=== PATIENT | female | born 1955 | race Caucasian/White ===

== ENCOUNTER → 2016-03-17 | Outpatient (CLI) | payer BC ==
[~2016-03-17] MED LIST: ATOR-54 PO; BUPR150T7 PO; CLOR3.755 PO; CMBIN INH; CROMOLYN 4% OP; HYDR1TAB2 PO; OMEP20CA9 PO; OXAP600T PO; SERT1TAB68 PO; SUMA6KIT2; ZOLP10TA PO
--- NOTE | 2016-03-17 16:32 | MAMMOGRAPHY REPORT ---
BILATERAL DIGITAL SCREENING MAMMOGRAM TOMOSYNTHESIS WITH CAD: 03/17/2016 CLINICAL HISTORY: Routine screening. Patient has no complaints. TECHNIQUE: Breast tomosynthesis in addition to standard 2D mammography was performed. Current study was also evaluated with a Computer Aided Detection (CAD) system. COMPARISON: Comparison is made to exams dated: 03/14/2015 mammogram, 03/13/2014 mammogram, 03/09/20 13 mammogram, 07/22/2011 mammogram, 07/04/2010 mammogram, and 05/01/2009 mammogram - [facility]. BREAST COMPOSITION: The tissue of both breasts is heterogeneously dense, which may obscure small ma sses. FINDINGS: The parenchymal pattern is similar to prior mammograms. There are scattered stable benign -appearing coarse calcifications. No suspicious mass, architectural distortion or cluster of [place] microcalcifications is seen. IMPRESSION: ACR BI-RADS CATEGORY 1: NEGATIVE There is no mammographic evidence of malignancy. A 1 year screening mammogram is recommended. The p atient will receive written notification of the results. Approximately 10% of breast cancers are not detected with mammography. A negative mammographic repor t should not delay biopsy if a clinically suggestive mass is present. Izabel Tobias M.D. ay/:03/17/2016 15:44:38 Commercial Print Salesman: Kisha SAVAGE)(Bekah), [facility] letter sent: Normal 1/2 BI-RADS Code: ACR BI-RADS Category 1: Negative
== END | disposition home or self-care (01) ==
LOC: C.MAMM 13:22
PROVIDERS: ATTEND Family Medicine
DX: Z12.31 Encounter for screening mammogram for malignant neoplasm of breast (principal)

== ENCOUNTER → 2017-03-19 | Outpatient (CLI) | payer BC ==
--- NOTE | 2017-03-22 07:35 | MAMMOGRAPHY REPORT ---
BILATERAL DIGITAL SCREENING MAMMOGRAM TOMOSYNTHESIS WITH CAD: 03/19/2017 CLINICAL HISTORY: Routine screening. TECHNIQUE: Breast tomosynthesis in addition to standard 2D mammography was performed. Current study was also evaluated with a Computer Aided Detection (CAD) system. COMPARISON: Comparison is made to exams dated: 03/17/2016 mammogram, 03/14/2015 mammogram, 03/13/2014 mammogram, 03/09/2013 mammogram, 07/15/2011 mammogram, and 07/04/2010 mammogram - [facility]. BREAST COMPOSITION: The tissue of both breasts is heterogeneously dense, which may obscure small mas ses. FINDINGS: There is a small cluster of calcifications within the left 12:00 breast, for which spot ma gnification views are recommended for further evaluation. The remainder of both breasts are stable compared to prior exams, without suspicious masses, calcific ations, or areas of architectural distortion noted. Other scattered bilateral benign-appearing calci fications are not significantly changed. IMPRESSION: ACR BI-RADS CATEGORY 0: INCOMPLETE EVALUATION: NEED ADDITIONAL IMAGING EVALUATION Left breast calcifications, for which additional imaging evaluation is recommended. The patient will be called to schedule an appointment. Approximately 10% of breast cancers are not detected with mammography. A negative mammographic report should not delay biopsy if a clinically suggestive mass is present. Laureen Parada M.D. /:03/19/2017 15:55:46 Musculoskeletal Physician: Jovani SAVAGE)(M), [facility] letter sent: Addl Imaging 0 BI-RADS Code: ACR BI-RADS Category 0: Incomplete Evaluation: Need Additional Imaging Evaluation
== END | disposition home or self-care (01) ==
LOC: C.MAMM 13:10
PROVIDERS: ATTEND Internal Medicine
DX: Z12.31 Encounter for screening mammogram for malignant neoplasm of breast (principal); R92.1 Mammographic calcification found on diagnostic imaging of breast

== ENCOUNTER → 2017-03-26 | Outpatient (CLI) | payer BC ==
--- NOTE | 2017-03-26 15:09 | MAMMOGRAPHY REPORT ---
UNILATERAL LEFT DIGITAL DIAGNOSTIC MAMMOGRAM: 03/26/2017 CLINICAL HISTORY: Callback from screening mammogram for left breast calcifications. TECHNIQUE: Spot magnification left CC and ML views were obtained. COMPARISON: Comparison is made to exams dated: 03/19/2017 mammogram, 03/17/2016 mammogram, 03/14/2015 ma mmogram, 03/13/2014 mammogram, 03/09/2013 mammogram, and 02/12/2012 ultrasound - [facility]. BREAST COMPOSITION: The tissue of the left breast is heterogeneously dense, which may obscure small masses. FINDINGS: Spot magnification views of the left breast demonstrate a small 2 mm cluster of amorphous a nd reticular calcifications in the left upper inner quadrant. On spot magnification views, the calci fications have the appearance of a developing rim/dystrophic calcification, as seen elsewhere in the left breast on the magnification views. The calcifications are probably benign and recommend short i nterval follow-up to confirm stability. IMPRESSION: ACR-BI-RADS CATEGORY 3: PROBABLY BENIGN The small 2 mm cluster calcifications in the left upper outer quadrant is probably benign and likely represents a developing dystrophic/rim calcification. Recommend follow-up diagnostic mammograms of t he left breast in 6 months to reevaluate. The patient has been verbally notified of the results. Approximately 10% of breast cancers are not detected with mammography. A negative mammographic report should not delay biopsy if a clinically suggestive mass is present. Laureen Parada M.D. /:03/26/2017 10:08:03 Sustainability Communicator: Rocio SAVAGE)(Bekah), [facility] letter sent: Follow Up Recommended 3 BI-RADS Code: ACR-BI-RADS Category 3: Probably Benign
== END | disposition home or self-care (01) ==
LOC: C.MAMM 09:48
PROVIDERS: ATTEND Internal Medicine
DX: R92.1 Mammographic calcification found on diagnostic imaging of breast (principal)